=== PATIENT | male | born 1935 | race Caucasian/White ===

== ENCOUNTER 2024-06-01 07:36 | Emergency (ER) | payer MEDICARE, OTHER, SELFPAY ==
[2024-06-01 07:41] VITALS: BP 79/51
[2024-06-01 09:10] VITALS: BP 102/69
--- NOTE | 2024-06-01 09:11 | ED.GENMED ---
History of Present Illness
General
Chief Complaint: Musculo-Skeletal Complaint
Source: patient and family
Exam Limitations: none
Time Seen by Provider: 06/01/24 08:26
Nursing documentation reviewed up to this point in time: agreed with
History of Present Illness
History of Present Illness:
88-year-old male presents of left low back pain status post slip and fall 48 hours ago fell onto concrete, no preceding chest pain or shortness of breath no head strike no neck pain, does take Eliquis but he is adamant that he did not hit his head
he had no hematuria no dark or bloody stools, pain initially improved then worsened and then improved again and then worsened today has been using any pain meds due to concerns that it could interact with his Eliquis, most pronounced over his left
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
Past History
Past History
ED Past Medical History: Arrthythmia (Atrial fibrillation), HTN, Hypercholesterolemia, NIDDM and Other (prostate CA); Negative CAD
ED Past Surgical History: Orthopedic (hip surgery)
Social History
Tobacco: Former smoker
Alcohol: None
Drug: None
Personal:
Living: with family
Employment: Retired
Family History
Family History: Other (Noncontributory)
Review of Systems
Review of Systems
All Other Systems: Not applicable
Constitutional: Denies fever or fatigue
EENT: Reports no symptoms
Respiratory: Reports no symptoms
Cardiac: Reports no symptoms; Denies chest pain or syncope
ABD/GI: Denies abdominal pain, nausea, bloody stools or black stools
: Denies bleeding
Musculoskeletal: Reports muscle stiffness; Denies edema
Skin: Reports no symptoms
Neurological: Reports no symptoms
Phy Exam
Physical Exam
Physical Exam:
Physical Exam
General: Pleasant elderly male no signs of head or neck trauma no tongue bite no posterior neck pain
Neck: Midline trachea
Heart: Regular
Lungs: no acute respiratory distress. clear bilaterally
Abdomen: Nontender
Neuro: alert and oriented. no focal neurological deficits
Skin: no rash
Psychiatric: cooperative
Extremities: [employer] strengths are strong and equal no pain with right straight leg raise minimal pain with left straight leg raise
Course
Orders/Labs/Results
Orders:
Orders
06/01/24 08:46
Oxycodone/Acetaminophen [Percocet 5/325] 1 tablet PO NOW STA
Lumbar Spine, 2 or 3 View [CR Lumbar Spine 2 Or 3 Views] Urgent
Comment:
Reason For Exam: fall
Pelvis, 1 or 2 Views CR [CR Pelvis - 1 Or 2 Views ] Urgent
Comment:
Reason For Exam: fall left hip pain
Vital Signs
Initial and Last Documented VS:
Initial Vital Signs
Temp Pulse Resp BP Pulse Ox
97.7 F 92 18 79/51 98
06/01/24 07:41 06/01/24 07:41 06/01/24 07:41 06/01/24 07:41 06/01/24 07:41
Last Documented Vital Signs
Temp Pulse Resp BP Pulse Ox
97.7 F 90 20 102/69 99
06/01/24 07:41 06/01/24 09:10 06/01/24 09:10 06/01/24 09:10 06/01/24 09:10
MDM/Problems Addressed
Differential Diagnosis Includes:
Contusion hip fracture hip dislocation lumbar spine issue fracture, pelvic fracture
MDM/Problems Addressed:
Left hip pain
Chronic conditions affecting care: Arrhythmia
Acute Exacerbation and/or Progression of Chronic Illness:
Prior hip surgery
Acute Exacerbation and/or Progression of Chronic Illness: Arrhythmia
*Radiology
Radiology exam reviewed: preliminary read by ED provider
*EKG
Rate: EKG- N/A
*Ops Manager Interpretation
Rate: Ops Manager- N/A
*Critical Care Note
Total Time (30-74mins, 75-104mins- exclusive of procedures): Not Applicable
Update Note
Update Note:
update
xray noted
pt feeling better
ED Attending Note
-
Portions of this chart may have been created with voice recognition software.� Occasional wrong word or��sound alike� substitutions may have occurred due to the inherent limitations of voice recognition software.
Discharge Plan
Departure
Patient Disposition: Home (Routine Discharge)
Date of Disposition: 06/01/24
Time of Disposition: 10:43
Patient with high blood pressure during this ER visit?: No
Condition: Good
Covid-19: Not Applicable
Discharge Problem:
Fall, Contusion
Instructions: Contusion (DC), Muscle and Bone Pain (DC)
Prescriptions:
No Action
tolterodine 4 MG capsule,extended release 24hr
4 mg PO DAILY
lisinopril 2.5 MG tablet
2.5 mg PO DAILY
rosuvastatin 10 MG tablet
10 mg PO QPM
amiodarone [Pacerone] 200 MG tablet
200 mg PO DAILY 0RF
fluticasone propionate [Flonase] 50 mcg/actuation [place],Suspension
1 spray INTRANASAL BID Qty: 0
omeprazole 20 MG capsule,delayed release(DR/EC)
20 mg PO DAILY
metoprolol succinate 25 MG tablet extended release 24 hr
25 mg PO BID
finasteride 5 MG tablet
5 mg PO DAILY
Eliquis 5 MG tablet
5 mg PO BID Qty: 0 0RF
methenamine hippurate 1 gram tablet
1 g PO BID
Ocuvite Adult 50 Plus 250 mg (90 mg-160 mg) Capsule
1 cap PO BID
Referrals:
Bc Padgett MD [Family Provider] -
Discharge Date and Time
Print Language: MACEDONIAN
[2024-06-01] MEDS: PERCOCET 5/325 1 TABLET PO (09:14)
[2024-06-01 11:28] VITALS: BP 104/72
== END 2024-06-01 11:30 | disposition home or self-care (01) ==
LOC: EMR 07:36
PROVIDERS: EMERGENCY PHYSICIAN Emergency Medicine; FAMILY PHYSICIAN Internal Medicine
DX: S70.02XA Contusion of left hip, initial encounter (principal); W19.XXXA Unspecified fall, initial encounter; Z87.891 Personal history of nicotine dependence
CPT/HCPCS: 99283; 72100; 72170

== ENCOUNTER 2025-03-15 12:03 | Emergency (ER) | payer MEDICARE, OTHER, SELFPAY ==
[2025-03-15 12:04] VITALS: BP 95/65
--- NOTE | 2025-03-15 13:14 | ED.GENMED ---
History of Present Illness
General
Chief Complaint: Fall
Source: patient
Exam Limitations: none
Time Seen by Provider: 03/15/25 12:58
Nursing documentation reviewed up to this point in time: agreed with
History of Present Illness
History of Present Illness:
89-year-old male CAD A-fib on Eliquis no prior stroke, presents after a fall he went out for 2 mile walk towards the last half mile he started getting tired bending over to try to get back to his facility apparently slipped on some mulch face hit
the ground, no preceding chest pain or shortness of breath no headache no neck pain no paresthesias no alcohol no arm or leg weakness
Past History
Past History
ED Past Medical History: Arrthythmia (Atrial fibrillation), HTN, Hypercholesterolemia, NIDDM and Other (prostate CA); Negative CAD
ED Past Surgical History: Orthopedic (hip surgery)
Social History
Tobacco: Former smoker
Alcohol: None
Drug: None
Personal:
Living: with family
Employment: Retired
Family History
Family History: Other (Noncontributory)
Review of Systems
Review of Systems
All Other Systems: Not applicable
EENT: Reports no symptoms
Respiratory: Reports no symptoms
Cardiac: Reports no symptoms
ABD/GI: Reports no symptoms
Musculoskeletal: Denies joint pain or muscle stiffness
Skin: Reports no symptoms
Neurological: Denies dizzy or weakness
Psychiatric: Reports no symptoms
Phy Exam
Physical Exam
Physical Exam:
Physical Exam
General: no apparent distress, not acutely ill
Neck: Abrasions on the nose and left forehead, no septal hematoma no tongue bite no posterior neck pain
Heart: Regular
Lungs: no acute respiratory distress.
Abdomen: Not tender
Neuro: alert and oriented. no focal neurological deficits
Skin: no rash
Psychiatric: well kept. interactive and cooperative
Extremities: No signs of extremity trauma
Course
Orders/Labs/Results
Orders:
Orders
03/15/25 12:10
CT Cervical Spine W/o Iv Contr Urgent
Comment:
Reason For Exam: fall/headstrike/thinners
CT Head W/o Iv Contrast Urgent
Comment:
Reason For Exam: fall/headstrike/thinners
Facial Bones wo Contrast CT [CT Facial Bones W/o Iv Contras] Urgent
Comment:
Reason For Exam: fall/headstrike/thinners
Vital Signs
Initial and Last Documented VS:
Initial Vital Signs
Temp Pulse Resp BP Pulse Ox
98.6 F 73 17 95/65 98
03/15/25 12:04 03/15/25 12:04 03/15/25 12:04 03/15/25 12:04 03/15/25 12:04
Last Documented Vital Signs
Temp Pulse Resp BP Pulse Ox
98.6 F 73 17 95/65 98
03/15/25 12:04 03/15/25 12:04 03/15/25 12:04 03/15/25 12:04 03/15/25 12:04
MDM/Problems Addressed
Differential Diagnosis Includes:
Slip and fall head trauma nasal fracture intracerebral hemorrhage cervical spine injury facial bone fracture
MDM/Problems Addressed:
Fall on mulch
Chronic conditions affecting care: Arrhythmia
Acute Exacerbation and/or Progression of Chronic Illness: Arrhythmia
*Radiology
Radiology exam reviewed: radiology read reviewed
*Pulse Oximetry
Patient hypoxic: no
Comment: 99
*Critical Care Note
Total Time (30-74mins, 75-104mins- exclusive of procedures): Not Applicable
Update Note
Update Note:
Update appears to be a slip and fall after taking a walk, [facility] 15 does take Eliquis, CAT scan reports are noted he has no septal hematoma
Will hold his Eliquis this evening verbally given instructions what to look out for for delayed intracerebral hemorrhage
ED Attending Note
-
Portions of this chart may have been created with voice recognition software.� Occasional wrong word or��sound alike� substitutions may have occurred due to the inherent limitations of voice recognition software.
Discharge Plan
Departure
Patient Disposition: Home (Routine Discharge)
Date of Disposition: 03/15/25
Time of Disposition: 13:18
Patient with high blood pressure during this ER visit?: No
Condition: Good
Discharge Problem:
Fall, Abrasion
Instructions: Concussion, Adult (DC), Head Injury in Adults (DC), Preventing falls in adults, Skin Abrasions (DC)
Prescriptions:
No Action
tolterodine 4 MG capsule,extended release 24hr
4 mg PO DAILY
lisinopril 2.5 MG tablet
2.5 mg PO DAILY
rosuvastatin 10 MG tablet
10 mg PO QPM
amiodarone [Pacerone] 200 MG tablet
200 mg PO DAILY 0RF
fluticasone propionate [Flonase] 50 mcg/actuation [place],Suspension
1 spray INTRANASAL BID Qty: 0
omeprazole 20 MG capsule,delayed release(DR/EC)
20 mg PO DAILY
metoprolol succinate 25 MG tablet extended release 24 hr
25 mg PO BID
finasteride 5 MG tablet
5 mg PO DAILY
Eliquis 5 MG tablet
5 mg PO BID Qty: 0 0RF
methenamine hippurate 1 gram tablet
1 g PO BID
Ocuvite Adult 50 Plus 250 mg (90 mg-160 mg) Capsule
1 cap PO BID
oxycodone-acetaminophen [Percocet] 5-325 mg tablet
1 tab PO Q6HPRN PRN (Reason: pain) Qty: 10 0RF
Referrals:
Bc Padgett MD [Family Provider, Internal Medicine] - Next open appointment
Activity Restrictions/Additional Instructions:
Rest, ice to areas that hurt, antibiotic ointment daily to your abrasion
No Eliquis this evening, then restart tomorrow as previously prescribed
Return to the ER if headaches, nausea vomiting, slurred speech, seizures or any other concerns
Interventions
Interventions:
*Risk Screen - Suicide Last Done: 03/15/25 12:04
*General Assessment Last Done: 03/15/25 12:04
*Neglect/Abuse Screening Last Done: 03/15/25 12:04
Discharge Date and Time
Print Language: TOGOLESE
[2025-03-15 13:22] LABS: Glucose - Point of Care 116 mg/dl (70-99)
[2025-03-15 13:44] VITALS: BP 129/81
== END 2025-03-15 13:46 | disposition home or self-care (01) ==
LOC: EMR 12:03
PROVIDERS: EMERGENCY PHYSICIAN Emergency Medicine; FAMILY PHYSICIAN Internal Medicine
DX: S00.31XA Abrasion of nose, initial encounter (principal); S00.81XA Abrasion of other part of head, initial encounter; X58.XXXA Exposure to other specified factors, initial encounter; I48.91 Unspecified atrial fibrillation; I10 Essential (primary) hypertension; E78.00 Pure hypercholesterolemia, unspecified; E11.9 Type 2 diabetes mellitus without complications; I25.10 Atherosclerotic heart disease of native coronary artery without angina pectoris; Z79.01 Long term (current) use of anticoagulants; Z87.891 Personal history of nicotine dependence
CPT/HCPCS: 99284; 70450; 70486; 72125; 82962